=== PATIENT | female | born 1980 ===

== ENCOUNTER 2020-05-02 11:05 | Emergency (ER) | payer OTHER ==
[~2020-05-02] VITALS: Ht 157.5 cm; Wt 77.1 kg
[~2020-05-02 11:05] MED LIST: SYNTHROID112 MCG; SYNTHROID125 MCG
== END 2020-05-02 15:03 | disposition home or self-care (01) ==
LOC: ER 11:05
DX: M77.51 Other enthesopathy of right foot and ankle (principal); M79.671 Pain in right foot